=== PATIENT | male | born 1975 | race African-American/Black ===

== ENCOUNTER 2020-10-26 12:19 | Inpatient (IN) | payer OTHER ==
[~2020-10-26] VITALS: Ht 162.6 cm; Wt 98.4 kg
--- NOTE | ~2020-10-26 | EKG ---
[place] [address] ELECTROCARDIOGRAM REPORT Name: ERMELINDA EVANS Room: [address] IN [facility]#: [id number] Admission: 10/26/20 Attend Phys: Isaiah Carreon Discharge: Date of : 77 Date of Service: 10/26/20 1334 Report #: [id number] THIS REPORT FOR: //name// [facility] ED Test Date: 2020-10-26 Test Time: 13:34:53 Pat Name: ERMELINDA EVANS Department: Patient ID: [id number]- Room: Gender: M Piper Installer: HARESH : 1975 Requested By: Britton Coates Order Number: [id number] MD: Measurements Intervals [place] Rate: 92 P: 49 AR: 171 QRS: 10 QRSD: 80 T: -1 QT: 338 QTc: 419 Interpretive Statements Sinus rhythm Borderline T abnormalities, inferior leads ST elev, probable normal early repol pattern No previous ECG available for comparison [email or web address] By: 1334 1334 Epiphany EpiphMD suraj /EPI
--- NOTE | ~2020-10-26 | CON ---
[address] [address] CONSULTATION Name: ERMELINDA EVANS Room: [address] IN [facility]#: [id number] Admission: 10/26/20 Attend Phys: Raimundo Ghosh Discharge: Date of : 77 Report #: [id number] THIS REPORT FOR: cc: Terell Collins MD, Timothy J. MD Khan, Abid R. MD ~ DOC #: [id number] Jude Angel MD DATE OF CONSULTATION: 10/27/2020 NEPHROLOGY CONSULTATION REASON FOR CONSULTATION: Elevated creatinine CONSULTING PHYSICIAN: Dr. Carreon. HISTORY OF PRESENT ILLNESS: A 45-year-old gentleman who comes in with a syncopal episode. Apparently, had 2 episodes of syncope prior to coming in. He was having some cold and flu-like symptoms and was taking some Nyquil at home. Denies any NSAIDs or recent antibiotics. He has been placed in respiratory precautions. His coronavirus PCR is pending. Currently appears to be comfortable, not having any oxygen requirements. He has had some nausea, but denies any vomiting or diarrhea. Denies any urinary difficulties. He sees Dr. Contreras as an outpatient, but has not seen him for over a year. He believes he has underlying chronic kidney disease, stage III. REVIEW OF SYSTEMS: Constitutional, psych, heme, eyes, ENT, respiratory, cardiac, GI, , endocrine, all negative except as documented above. PAST MEDICAL HISTORY: Chronic kidney disease from the patient's recollection, stage III; hypertension; insulin-dependent diabetes type 2. MEDICATIONS: Reviewed. SOCIAL HISTORY: Denies excess alcohol intake. FAMILY HISTORY: Not pertinent ____ 45-year-old gentlemen. CURRENT MEDICATIONS: Reviewed. PHYSICAL EXAMINATION: VITAL SIGNS: Blood pressure 130/90, pulse 83, respirations 16, temperature 36.7. GENERAL: No acute distress. EYES: [place] [id number] CONSULTATION Name: ERMELINDA EVANS Room: [address] IN [facility]#: [id number] Admission: 10/26/20 Attend Phys: Raimundo Ghosh Discharge: Date of : 77 Report #: [id number] EARS: Externally normal. NECK: Supple. CARDIOVASCULAR: Regular rate. No rub. LUNGS: No crackles. ABDOMEN: Soft. MUSCULOSKELETAL: Nontender. PSYCHIATRIC: Awake, alert. LABORATORY DATA: White cell count 5, hemoglobin 14.3, platelets 240. Sodium 134, potassium 4, chloride 98, bicarbonate 27, BUN 66, creatinine 4.6, glucose 157, calcium 8.9, albumin 2.7. This chemistry lab is from yesterday. ASSESSMENT: 1. Acute kidney injury. Baseline creatinine unknown. Admission creatinine of 4.6, suspect in the setting of volume depletion. UA does show protein and blood. He was on ARB and thiazide as an outpatient as well. 2. Chronic kidney disease, I believe stage III, followed by Dr. Contreras as an outpatient. Baseline creatinine unknown. 3. Hypoalbuminemia with an albumin of 2.7. 4. Insulin-dependent diabetes type 2. 5. Hypertension. 6. Proteinuria. PLAN: Check lab now. Creatinine may have improved. We will not order any additional workup at this time including I will hold off on sending serologies as well as ultrasound until outpatient records can be reviewed and we can see if kidney function is improving. He appears to be asymptomatic with regard to any uremic signs or symptoms at this time. We will check lab again in a.m. and follow along with you. Thank you for requesting my opinion in the care and management of this patient. MD SANIA JohnsonK/HERMELINDO By: [id number] Angel MD /nt
[2020-10-26 12:40] VITALS: BP 97/67
[2020-10-26] MEDS ORDERED: HUMALOG100 UNIT/1 SUBQ ×2 (12:46→12:47)
[2020-10-26] MEDS ORDERED: LOSARTAN-HCTZ1 EAC3 PO (12:46)
[2020-10-26 14:01] LABS: CALCIUM 8.9 mg/dL (8.5-10.1); CREATININE 4.6 mg/dL (0.6-1.3)
[2020-10-26 14:04] LABS: ABSOLUTE LYMPHOCYTES 1.6 thou/uL (0.8-5.3); ABSOLUTE MONOCYTES 0.8 thou/uL (0.0-1.2); ABSOLUTE NEUTROPHILS 2.6 thou/uL (1.6-8.1); BASOPHILS 0.5 %; HEMATOCRIT 43.4 % (42.0-52.0); HEMOGLOBIN 14.3 gm/dL (14.0-18.0); LYMPHOCYTES 31.4 %; MCH 24.5 pg (26.0-34.0); MCHC 32.9 g/dL (28.0-37.0); MCV 74.4 fL (80.0-100.0); MONOCYTES 16.7 %; NUCLEATED RBCS 0 /100WBC; PLATELET COUNT* 240 thou/uL (150-400); POLYS 51.4 %; RBC 5.83 mil/uL (4.50-6.00); RDW-CV 16.8 % (10.5-14.5)
[2020-10-26 14:05] LABS: ALBUMIN 2.7 g/dL (3.4-5.0); TOTAL BILIRUBIN 0.4 mg/dL (<0.1-1.0); TOTAL PROTEIN 8.4 g/dL (6.4-8.2)
[2020-10-26 14:18] LABS: URINE BILIRUBIN NEGATIVE (Negative); URINE BLOOD 1+ (Negative); URINE CLARITY CLEAR; URINE COLOR YELLOW; URINE GLUCOSE-RANDOM NEGATIVE (Negative); URINE KETONES NEGATIVE (Negative); URINE LEUKOCYTES-REFLEX NEGATIVE (Negative); URINE NITRITE-REFLEX NEGATIVE (Negative); URINE PROTEIN 3+ (Negative); URINE SPECIFIC GRAVITY 1.025 (1.005-1.030); URINE UROBILINOGEN 0.2 E.U./dl (0.2-1.0)
[2020-10-26 14:30] LABS: SQUAMOUS 4-10 Moderate /LPF (0-3)
[2020-10-26 14:31] LABS: BACTERIA-REFLEX None Seen /HPF (None Seen); CASTS None Seen /LPF (None Seen); CRYSTALS None Seen /LPF (None Seen); MUCUS 0-3 Light strn/LPF (None Seen); URINE RBC 0-2 Rare /HPF (0-2); URINE WBC-REFLEX None Seen /HPF (0-5)
[2020-10-26 16:53] VITALS: BP 112/70
[2020-10-26 17:00] VITALS: BP 130/79
[2020-10-27 00:54] VITALS: BP 116/60
[2020-10-27 04:03] VITALS: BP 116/69
[2020-10-27 08:27] VITALS: BP 119/73
[2020-10-27 12:00] VITALS: BP 130/90
[2020-10-27 15:12] LABS: CALCIUM 8.7 mg/dL (8.5-10.1); CREATININE 3.7 mg/dL (0.6-1.3); POTASSIUM 3.9 mmol/L (3.5-5.1)
[2020-10-27 16:00] VITALS: BP 143/69
[2020-10-27 20:00] VITALS: BP 122/75
[2020-10-28] VITALS: BP 125/76
[2020-10-28 04:00] VITALS: BP 144/68
[2020-10-28 04:45] LABS: HEMATOCRIT 36.5 % (42.0-52.0); MCH 23.8 pg (26.0-34.0); MCHC 32.1 g/dL (28.0-37.0); MCV 74.1 fL (80.0-100.0); MPV 8.5 fl. (7.2-11.1); RBC 4.93 mil/uL (4.50-6.00); RDW-CV 16.5 % (10.5-14.5); WBC 4.8 thou/uL (4.0-11.0)
[2020-10-28 05:04] LABS: HEMOGLOBIN 11.7 gm/dL (14.0-18.0)
[2020-10-28 05:08] LABS: ALBUMIN 2.1 g/dL (3.4-5.0); CALCIUM 8.5 mg/dL (8.5-10.1); CREATININE 3.2 mg/dL (0.6-1.3); PHOSPHORUS* 3.4 mg/dL (2.5-4.9); POTASSIUM 3.9 mmol/L (3.5-5.1)
[2020-10-28 05:29] LABS: CALCIUM 8.2 mg/dL (8.5-10.1); CREATININE 3.4 mg/dL (0.6-1.3)
[2020-10-28 08:00] VITALS: BP 116/84
[2020-10-28 14:01] VITALS: BP 116/84
[2020-10-28] MEDS ORDERED: LEVOFLOXACIN500 MG PO (14:41)
== END 2020-10-28 16:20 | disposition home or self-care (01) | DRG 177 ==
LOC: M.ERS 12:19 → M.TBA-ER 14:46 → M.2W 14:46
PROVIDERS: Emergency Medicine Emergency Medical Services; Internal Medicine Nephrology; ADMIT Internal Medicine; ATTEND Internal Medicine
DX: J15.6 Pneumonia due to other Gram-negative bacteria (principal); N17.0 Acute kidney failure with tubular necrosis; J96.00 Acute respiratory failure, unspecified whether with hypoxia or hypercapnia; N18.4 Chronic kidney disease, stage 4 (severe); E44.1 Mild protein-calorie malnutrition; E78.00 Pure hypercholesterolemia, unspecified; I12.9 Hypertensive chronic kidney disease with stage 1 through stage 4 chronic kidney disease, or unspecified chronic kidney disease; E11.22 Type 2 diabetes mellitus with diabetic chronic kidney disease; Z20.822 Contact with and (suspected) exposure to COVID-19; Z79.4 Long term (current) use of insulin; Z79.899 Other long term (current) drug therapy; Z68.37 Body mass index [BMI] 37.0-37.9, adult